=== PATIENT | male | born 1940 | race Caucasian/White ===

== ENCOUNTER 2016-07-22 20:52 | Observation (INO) | payer BC ==
[~2016-07-22] VITALS: Ht 172.7 cm; Wt 83.0 kg
[~2016-07-22 20:52] MED LIST: HYDROXYZINE HCL25 MG PO; METOPROLOL TART25 MG PO; NEURONTIN100 MG PO; PAXIL40 MG PO; PRAZOSIN HCL2 MG PO; PRILOSEC20 MG PO; PRINIVIL10 MG PO; ZOCOR10 MG PO
== END 2016-07-23 17:30 | disposition home or self-care (01) ==
LOC: ER 20:52 → MED 22:51 → ER 07-23 00:28 → MED 07-23 17:30
PROVIDERS: ADMIT Internal Medicine
DX: I48.0 Paroxysmal atrial fibrillation (principal); I25.10 Atherosclerotic heart disease of native coronary artery without angina pectoris; N40.0 Benign prostatic hyperplasia without lower urinary tract symptoms; Z88.2 Allergy status to sulfonamides; Z79.01 Long term (current) use of anticoagulants; Z79.82 Long term (current) use of aspirin; Z79.899 Other long term (current) drug therapy; Z98.890 Other specified postprocedural states
CPT/HCPCS: 36415; 96374; 96375; G0378